=== PATIENT | male | born 1970 | race Asian ===

== ENCOUNTER 2023-01-22 07:37 | Emergency (ER) | payer MEDICAID, OTHER ==
[~2023-01-22] VITALS: Ht 170.2 cm; Wt 95.5 kg
[2023-01-22] MEDS ORDERED: SACU1TAB PO (07:42)
[2023-01-22] MEDS ORDERED: CARV25 PO (07:42)
[2023-01-22] MEDS ORDERED: FURO40 PO (07:42)
[2023-01-22] MEDS ORDERED: EMPA25TA3 PO (07:42)
[2023-01-22] MEDS ORDERED: KETOROLAC TROMETHAMINE 60 MG/2 ML VIAL IM ONE (08:45)
[2023-01-22] MEDS ORDERED: INDO50CA97 PO (11:36)
[2023-01-22 11:54] VITALS: BP 116/71
== END 2023-01-22 11:54 | disposition home or self-care (01) ==
LOC: EMS 07:45
DX: M79.672 Pain in left foot (principal); R50.9 Fever, unspecified; I50.9 Heart failure, unspecified; E11.9 Type 2 diabetes mellitus without complications; Z79.899 Other long term (current) drug therapy
CPT/HCPCS: 99283; 73630; 96372; J1885

== ENCOUNTER 2023-10-22 06:34 | Emergency (ER) | payer MEDICAID ==
[~2023-10-22] VITALS: Ht 167.6 cm; Wt 99.1 kg
[~2023-10-22 06:34] MED LIST: CARV25 PO; EMPA25TA3 PO; FURO40 PO; INDO50CA97 PO; SACU1TAB PO
[2023-10-22 06:58] VITALS: TEMP 98.2
[2023-10-22] MEDS ORDERED: METO50 PO (06:58)
[2023-10-22] MEDS ORDERED: [UNRECOGNIZED DRUG - CODE] PO (06:58)
[2023-10-22] MEDS ORDERED: CARV3.1231 PO (06:58)
[2023-10-22] MEDS ORDERED: [UNRECOGNIZED DRUG - CODE] OU (06:58)
[2023-10-22] MEDS: SODIUM CHLORIDE 0.9% 1,000 ML IV ONE (07:44)
[2023-10-22 07:54] LABS: BASOPHILS % (AUTO) 0.4 % (0.0-2.0); EOSINOPHILS % (AUTO) 0.1 % (1.0-6.0); HEMATOCRIT 46.8 % (41-53); HEMOGLOBIN 15.4 g/dL (13.5-17.5); LYMPHOCYTES # (AUTO) 1.5 K/uL (1.0-4.8); LYMPHOCYTES % (AUTO) 19.6 % (22.0-44.0); MEAN CORPUSCULAR VOLUME 97 fL (80-100); MONOCYTES # (AUTO) 0.3 K/uL (0.1-1.0); MONOCYTES % (AUTO) 3.4 % (2.0-9.0); NEUTROPHILS # (AUTO) 5.8 K/uL (1.8-7.7); NEUTROPHILS % (AUTO) 76.5 % (40.0-70.0); PLATELET COUNT (AUTO) 172 K/uL (150-450); RED BLOOD CELL COUNT(AUTO) 4.81 MIL/uL (4.50-5.90); RED CELL DISTRIBUTION WIDTH 14.5 % (11.5-14.5); WHITE BLOOD COUNT (AUTO) 7.6 K/uL (4.5-11.0)
[2023-10-22 08:03] LABS: ANION GAP 13 mmol/L (8-16); CARBON DIOXIDE 23 mmol/L (22-29); CHLORIDE 100 mmol/L (98-107); CREATININE 0.94 mg/dL (0.60-1.30); GLOMERULAR FILTR. RATE CALC > 60 mL/min (>60); GLUCOSE,RANDOM 121 mg/dL (70-110); POTASSIUM 4.5 mmol/L (3.5-5.1); SODIUM SERUM 136 mmol/L (136-145); UREA NITROGEN, BLOOD 26 mg/dL (7-18)
[2023-10-22 08:11] LABS: TROPONIN I-HIGH SENSITIVITY 11 ng/L (<76)
[2023-10-22 08:13] LABS: ALANINE AMINOTRANSFERASE 27 U/L (12-78); ALKALINE PHOSPHATASE 69 U/L (46-116); ASPARTATE AMINOTRANSFERASE 20 U/L (15-37); BILIRUBIN,TOTAL 1.3 mg/dL (0.1-1.0); LIPASE 24 U/L (16-77)
[2023-10-22 11:54] LABS: APPEARANCE,URINE CLEAR (CLEAR); BILIRUBIN,URINE NEGATIVE (NEGATIVE); COLOR,URINE YELLOW (YELLOW); GLUCOSE, URINE (UA) >=1000 mg/dL (NEGATIVE); LEUKOCYTE ESTERASE ,URINE NEGATIVE (NEGATIVE); NITRATE,URINE NEGATIVE (NEGATIVE); OCCULT BLOOD,URINE NEGATIVE (NEGATIVE); PH,URINE 5.5 (5.0-8.0); PROTEIN,URINE 100-200,SEE CONFIRM mg/dL (NEGATIVE); UROBILINOGEN,URINE <=1.0 mg/dL (<=1.0)
[2023-10-22 12:10] LABS: SULFOSALICYLIC ACID,URINE 2+ (Negative)
[2023-10-22 12:11] LABS: BACTERIA,URINE None Seen /HPF (None Seen); RBC,URINE None Seen /HPF (0-2); WBC,URINE None Seen /HPF (0-5)
[2023-10-22 12:47] VITALS: BP 130/85; PULSE 80; RESP 16
== END 2023-10-22 12:48 | disposition home or self-care (01) ==
LOC: EMS 06:35
DX: R10.13 Epigastric pain (principal); K85.90 Acute pancreatitis without necrosis or infection, unspecified; E11.9 Type 2 diabetes mellitus without complications; M10.9 Gout, unspecified; I50.9 Heart failure, unspecified
CPT/HCPCS: 74176; 76705; 80053; 81001; 81002; 83690; 83880; 84484; 85025; 93005; 96360; 99284; 36415-L1; 36415-TC

== ENCOUNTER 2024-09-20 17:35 | Emergency (ER) | payer MEDICAID, OTHER ==
[~2024-09-20] VITALS: Ht 170.2 cm; Wt 93.2 kg
[~2024-09-20 17:35] MED LIST changes: -CARV25 PO; +CARV3.1231 PO; -EMPA25TA3 PO; -FURO40 PO; +FURO40TA6 PO; -INDO50CA97 PO; +METO50 PO; +[UNRECOGNIZED DRUG - CODE] OU; +[UNRECOGNIZED DRUG - CODE] PO
[2024-09-20 17:47] VITALS: BP 153/54; PULSE 91; RESP 18; TEMP 97.8; O2SAT 94
[2024-09-20] MEDS: ACETAMINOPHEN 500 MG TABLET PO ONE (19:52)
[2024-09-20] MEDS: COLCHICINE 0.6 MG TABLET PO ONE (19:53)
[2024-09-20] MEDS ORDERED: ACET-3385 PO (20:13)
[2024-09-20] MEDS ORDERED: COLC-3 PO (20:13)
== END 2024-09-20 20:19 | disposition home or self-care (01) ==
LOC: EMS 17:35
DX: M10.9 Gout, unspecified (principal); E11.9 Type 2 diabetes mellitus without complications; I50.9 Heart failure, unspecified; Z79.899 Other long term (current) drug therapy
CPT/HCPCS: 99283

== ENCOUNTER → 2025-01-04 | Emergency (ER) | payer MEDICAID, OTHER ==
[~2025-01-04] VITALS: Ht 170.2 cm; Wt 93.0 kg
[~2025-01-04] MED LIST changes: +ACET-3385 PO; +COLC-3 PO; +INDO50CA97 PO
[2025-01-04 19:11] VITALS: TEMP 98
[2025-01-04] MEDS: IBUPROFEN 600 MG TABLET PO ONE (21:17)
[2025-01-05 00:36] VITALS: BP 102/70; PULSE 88; RESP 18; O2SAT 99
== END | disposition home or self-care (01) ==
LOC: EMS 18:58
DX: M10.9 Gout, unspecified (principal); M79.672 Pain in left foot; E11.9 Type 2 diabetes mellitus without complications; I50.9 Heart failure, unspecified; Z79.899 Other long term (current) drug therapy
CPT/HCPCS: 99283

== ENCOUNTER 2025-01-05 20:25 | Emergency (ER) | payer MEDICAID, OTHER ==
[~2025-01-05] VITALS: Ht 170.2 cm; Wt 93.0 kg
[2025-01-05 20:34] VITALS: BP 110/65; PULSE 70; RESP 18; TEMP 98; O2SAT 98
[2025-01-05] MEDS ORDERED: COLC-3 PO (20:54)
[2025-01-05] MEDS: TraMADol HCL 50 MG TABLET PO ONE (20:59)
[2025-01-05] MEDS: MethylPREDNISolone SOD SUCC 125 MG/2 ML VIAL IM ONE (20:59)
== END 2025-01-05 21:07 | disposition home or self-care (01) ==
LOC: EMS 20:26
DX: M10.00 Idiopathic gout, unspecified site (principal); E11.9 Type 2 diabetes mellitus without complications; I50.9 Heart failure, unspecified; Z79.899 Other long term (current) drug therapy
CPT/HCPCS: 99283; 96372; J2919

== ENCOUNTER 2025-07-01 09:59 | Emergency (ER) | payer MEDICAID, OTHER ==
[~2025-07-01] VITALS: Ht 170.2 cm; Wt 95.5 kg
[2025-07-01 10:02] VITALS: BP 114/86; PULSE 78; RESP 28; TEMP 97.5; O2SAT 95
[2025-07-01 10:21] LABS: GLUCOMETER DEV NAME(LOC) ER.7; GLUCOSE,POINT OF CARE 158 MG/DL (70-110)
[2025-07-01 10:25] LABS: COVID AG,FIA SOURCE NASAL SWAB
[2025-07-01] MEDS ORDERED: BENZ-227 PO (10:44)
[2025-07-01] MEDS: BENZONATATE 100 MG CAPSULE PO ONE (10:45)
[2025-07-01 11:17] LABS: INFLUENZA TYPE A NEGATIVE FOR TYPE A (NEGATIVE); INFLUENZA TYPE B NEGATIVE FOR TYPE B (NEGATIVE)
[2025-07-01 11:24] LABS: SARS-COV2 (COVID) ANTIGEN,FIA Positive (Negative)
== END 2025-07-01 11:46 | disposition home or self-care (01) ==
LOC: EMS 09:59
DX: U07.1 COVID-19 (principal); R05.9 Cough, unspecified; J02.9 Acute pharyngitis, unspecified; J34.89 Other specified disorders of nose and nasal sinuses; E11.9 Type 2 diabetes mellitus without complications; I50.9 Heart failure, unspecified; M10.9 Gout, unspecified; Z79.899 Other long term (current) drug therapy; Z20.822 Contact with and (suspected) exposure to COVID-19
CPT/HCPCS: 82962; 87081; 87430; 87804; 99283

== ENCOUNTER 2025-07-10 09:52 | Emergency (ER) | payer MEDICAID, OTHER ==
[~2025-07-10] VITALS: Ht 170.2 cm; Wt 95.5 kg
[~2025-07-10 09:52] MED LIST changes: +BENZ-227 PO
[2025-07-10 09:58] VITALS: TEMP 98.2
[2025-07-10] MEDS ORDERED: BUME1TAB50 PO (10:00)
[2025-07-10] MEDS ORDERED: EMPA10TA3 PO (10:00)
[2025-07-10] MEDS ORDERED: SPIR-37 PO (10:01)
[2025-07-10 10:20] LABS: GLUCOMETER DEV NAME(LOC) ERT.7; GLUCOSE,POINT OF CARE 111 MG/DL (70-110)
[2025-07-10] MEDS: HYDROCODONE/ACETAMINOPHEN 5-325 MG TABLET PO ONE (11:48)
[2025-07-10] MEDS: COLCHICINE 0.6 MG TABLET PO ONE (11:48)
[2025-07-10 12:19] VITALS: BP 119/76; PULSE 96; RESP 16; O2SAT 98
[2025-07-10] MEDS ORDERED: IBUP-1554 PO (12:22)
[2025-07-10] MEDS ORDERED: COLC-3 PO (12:22)
[2025-07-10] MEDS ORDERED: ALLO-97 PO (12:22)
[2025-07-10] MEDS ORDERED: HYDR-4062 PO (12:22)
== END 2025-07-10 12:50 ==
LOC: EMS 09:52
DX: M10.9 Gout, unspecified (principal); E11.9 Type 2 diabetes mellitus without complications; I50.9 Heart failure, unspecified; Z79.899 Other long term (current) drug therapy
CPT/HCPCS: 82962; 99283

== ENCOUNTER 2025-08-14 08:52 | Emergency (ER) | payer MEDICAID, OTHER ==
[~2025-08-14] VITALS: Ht 170.2 cm; Wt 104.5 kg
[~2025-08-14 08:52] MED LIST changes: +ALLO-97 PO; -BENZ-227 PO; +BUME1TAB50 PO; +EMPA10TA3 PO; -FURO40TA6 PO; +HYDR-4062 PO; +IBUP-1554 PO; -METO50 PO; +SPIR-37 PO; -[UNRECOGNIZED DRUG - CODE] OU; -[UNRECOGNIZED DRUG - CODE] PO
[2025-08-14 09:05] VITALS: BP 107/69; PULSE 84; RESP 18; TEMP 97.6; O2SAT 97
[2025-08-14 09:19] LABS: COVID AG,FIA SOURCE NASAL SWAB
[2025-08-14 10:26] LABS: SARS-COV2 (COVID) ANTIGEN,FIA Negative (Negative)
[2025-08-14 10:28] LABS: INFLUENZA TYPE A NEGATIVE FOR TYPE A (NEGATIVE); INFLUENZA TYPE B NEGATIVE FOR TYPE B (NEGATIVE)
== END 2025-08-14 12:46 | disposition left against medical advice (07) ==
LOC: EMS 08:52
DX: R05.9 Cough, unspecified (principal); Z20.822 Contact with and (suspected) exposure to COVID-19; Z53.21 Procedure and treatment not carried out due to patient leaving prior to being seen by health care provider
CPT/HCPCS: 82962; 87804; 99281